=== PATIENT | male | born 1975 | race Caucasian/White ===

== ENCOUNTER 2022-04-03 02:04 | Emergency (ER) | payer SELFPAY ==
[2022-04-03 02:18] VITALS: BP 142/93
--- NOTE | 2022-04-03 02:44 | XRay Report ---
Right unilateral RIBS with chest 3 views INDICATION: Right chest pain IMPRESSION: No acute cardiopulmonary abnormality. No displaced rib fracture is identified. Signer Name: Polo Pike MD Signed: 04/03/2022 2:40 AM Workstation Name: [employer]
== END 2022-04-03 19:00 | disposition left against medical advice (07) ==
LOC: ED 02:04
DX: R07.82 Intercostal pain (principal); Z53.21 Procedure and treatment not carried out due to patient leaving prior to being seen by health care provider